=== PATIENT | female | born 1965 | race Caucasian/White ===

== ENCOUNTER → 2018-10-25 11:13 | Outpatient (CLI) | payer OTHER ==
--- NOTE | 2018-11-01 12:04 | EC ---
PATIENT:ISAMAR BLAS DATE OF SERVICE: 10/25/18 SEX: F MEDICAL RECORD: [id number] DATE OF : [birth year] [facility] AGE [facility] PATIENT: 53 ADMISSION DATE: 10/25/18 REFERRING PHYSICIAN: INTERPRETING PHYSICIAN: IRVING EAGLE MD ECHOCARDIOGRAM REPORT ECHO CHARGES 4 ECHO COMPLETE Date: 10/25/18 CLINICAL DIAGNOSIS: SYNCOPE ECHOCARDIOGRAPHIC MEASUREMENTS (adult normal given) AC root (d.<3.7cm) 2.8 cm LV Septum d (<1.2 cm> 1.2 cm Valve Excursion 1.2 cm LV Septum (systole) 1.5 cm Left Atria (s.<4.0cm> 3.9 cm LVPW d(<1.2cm) 1.4 cm RV (d.<2.3cm) 3.6 cm LVPW (sytole) 1.6 cm LV diastole(<5.6CM) 4.3 cm MV E-F(>70mm/sec) cm LV systole 3.3 cm LVOT Diameter 1.8 cm MV exc.(>10mm) 2.2 cm Est.ejection fraction (50-75%) % DOPPLER: LVIT cm/sec A 74.0 cm/sec E 85.0 cm/sec LA cm/sec RVSP 15 mmHg LVOT 118 cm/sec AOP1/2T m/s Asc. Ao 156 cm/sec RVOT 57 cm/sec RA cm/sec PA 125 cm/sec AV Gradient Peak 9.79 mmHg AV Mean 5.13 mmHg AV Area 1.9 cm MV Gradient Peak 4.31 mmHg MV Mean 1.65 mmHg MV Area cm COMMENTS: Medical Reimbursement Manager: Dustin OJNES Ammunition Officer: 1 Dr. Eagle TAPE# PACS Pericardial Effusion N DATE OF SERVICE: 10/25/2018 PROCEDURE: Echocardiogram. FINDINGS: 1. Left ventricular chamber size is within normal limits. Left ventricular systolic function is normal. Overall ejection fraction estimated at 60%. 2. Left atrium, right atrium and right ventricular chamber sizes are within normal limits. 3. Valvular structures have normal structure and motion. ECHOCARDIOGRAM REPORT [id number] ISAMAR BLAS 4. Doppler interrogation reveals mild mitral regurgitation, no other valvular insufficiency or stenosis and pulmonary systolic pressure is normal estimated 15 mmHg. 5. No evidence of pericardial effusion or left ventricular thrombus. TRANSINT:[id number] Voice Confirmation ID: [id number] DOCUMENT ID: [id number] IRVING EAGLE MD at 1204 CC: [id number] DICTATION DATE: 10/31/18 1133 COMPUTER SYSTEMS AUDITOR: 10/31/18 1143 DEP CLI 10/25/18 [place] [id number] [place] [id number]
== END | disposition home or self-care (01) ==
LOC: D.HCCARDIO 10-17 11:30
PROVIDERS: ATTEND Internal Medicine Cardiovascular Disease
DX: I20.9 Angina pectoris, unspecified (principal); R55 Syncope and collapse